=== PATIENT | male | born 1945 | race Caucasian/White ===

== ENCOUNTER → 2016-11-25 | Outpatient (CLI) | payer MEDICARE, OTHER | END | disposition home or self-care (01) | LOC: CDC 10:45 | DX: S86.092A Other specified injury of left Achilles tendon, initial encounter (principal); M25.572 Pain in left ankle and joints of left foot | CPT/HCPCS: 93000 ==

== ENCOUNTER 2017-01-08 11:33 | Emergency (ER) | payer OTHER ==
[~2017-01-08] VITALS: Ht 182.9 cm; Wt 114.8 kg
[2017-01-08 12:10] LABS: HEMATOCRIT 38.3 % (38.0-50.0); MCH 31.8 PG (29.0-34.0); MCHC 34.7 G/DL (30.0-36.0); MCV 91.6 FL (86-99); MEAN PLAT.VOLUME 10.6 uM^3 (9.0-12.4); PLATELET COUNT 147 K/uL (156-360); RBC DIS.WIDTH-CV 11.4 % (11.8-14.6); RBC DIS.WIDTH-SD 38.6 % (39-53); RED BLOOD COUNT 4.18 M/uL (4.00-5.50); WHITE BLOOD COUNT 4.5 K/uL (4.1-10.2)
[2017-01-08 12:27] LABS: CHLORIDE 103 mEq/L (99-109); POTASSIUM 4.5 mEq/L (3.7-5.4); SODIUM 139 mEq/L (136-147)
[2017-01-08 12:28] LABS: GLUCOSE 92 mg/dL (70-99)
[2017-01-08 12:30] LABS: ANION GAP 8 MEQ/L (2-14)
[2017-01-08 12:32] LABS: GFR ESTIMATE (CALCULATED) 58 mL/min/
[2017-01-08 12:33] LABS: TROP-I INTERPRETATION NEGATIVE; TROPONIN-I 0.03 ng/mL (0.0-0.30); UREA NITROGEN (BUN) 21 mg/dL (9-23)
[2017-01-08 12:35] LABS: URIC ACID 7.5 mg/dL (3.1-9.2)
[2017-01-08] MEDS ORDERED: KEFLEX500 MG PO (15:38)
[2017-01-08] MEDS ORDERED: ROXICODONE5 MG PO (15:50)
[2017-01-08 16:13] VITALS: BP 134/62
== END 2017-01-08 16:14 | disposition home or self-care (01) ==
LOC: EME 11:33
PROVIDERS: Nurse Practitioner Family
DX: T81.4XXA Infection following a procedure, initial encounter (principal); L03.116 Cellulitis of left lower limb; Y83.8 Other surgical procedures as the cause of abnormal reaction of the patient, or of later complication, without mention of misadventure at the time of the procedure; I10 Essential (primary) hypertension; E78.5 Hyperlipidemia, unspecified; M10.9 Gout, unspecified; Z79.82 Long term (current) use of aspirin; Z87.891 Personal history of nicotine dependence
CPT/HCPCS: 73630; 80048; 84484; 84550; 85027; 93005; 93971; 99281; 99284